=== PATIENT | male | born 1945 | race Caucasian/White ===

== ENCOUNTER 2016-08-01 01:04 | Inpatient (IN) | payer MEDICARE ==
[~2016-08-01 01:04] MED LIST: ALDACTONE25 M1 PO; AMIODARONE HCL200 M1 PO; ASPIRIN EC81 MG PO; BREO ELLIPTA 11 EAC1 INH; COMBIVENT RESPIM4 G1 INH; DEMADEX20 M1 PO; DILT-XR180 M1 PO; HYDROCODON-ACE1 EA16 PO; LIPITOR20 M1 PO; LOPRESSOR100 M1 PO; METOLAZONE2.5 M1 PO; NYAMYC15 GM TP; POTASSIUM CHLO20 ME3 PO; PROAIR HFA8.5 GM INH; PROSCAR5 M1 PO; PROTONIX40 M2 PO; SYNTHROID25 MC1 PO; TAMSULOSIN HCL0.4 M1 PO
[2016-08-01 02:49] LABS: BASO % 0.2 % (0-2); EOS % 0.7 % (0-7); EOSINOPHIL ABSOLUTE COUNT 0.1 tho/cmm (0.0-0.7); HCT-HEMATOCRIT 37.8 % (36.0-53.5); HGB-HEMOGLOBIN 12.1 gm/dl (13.5-17.0); IMMATURE GRANULOCYTES ABSOLUTE 0.22 tho/cmm (0-0.03); IMMATURE GRANULOCYTES PERCENT 1.2 % (0-0.3); LYMPH % 9.9 % (20-45); LYMPH ABSOLUTE COUNT 1.9 tho/cmm (0.8-4.5); MCH (MEAN CORPUSCULAR HGB) 28.9 pg (28.0-32.0); MCV (MEAN CELL VOLUME) 90.2 fl (82.0-96.0); MEAN PLATELET VOLUME 9.9 cmc (9.4-12.4); MONO % 8.8 % (0-12); MONOCYTE ABSOLUTE COUNT 1.7 tho/cmm (0.0-1.2); NEUTROPHILS % 79.2 % (40-80); PLATELET COUNT 219 tho/cmm (150-450); RED BLOOD COUNT 4.19 mil/cmm (4.40-5.70); RED CELL DISTRIBUTION WIDTH 16.6 % (12.4-16.4)
[2016-08-01 03:00] LABS: ANION GAP 16 mmol/L (0-20); BLOOD UREA NITROGEN 58 mg/dl (6-24); CALCIUM 9.3 mg/dl (8.5-10.5); CARBON DIOXIDE-VENOUS 32 mmol/L (22-32); CHLORIDE 91 mmol/l (96-110); CREATININE 3.97 mg/dl (0.60-1.30); GLUCOSE 110 mg/dL (70-110); POTASSIUM 3.7 mmol/L (3.7-5.1); SODIUM 135 mmol/L (135-145); eGFR VALUE FOR BLACK 16 mL/Min
[2016-08-01 03:16] LABS: OSMOLALITY 300 mOsm/kg (275-295)
[2016-08-01 03:50] LABS: PROCALCITONIN 0.42 ng/ml (0.05-0.09)
[2016-08-01 13:56] LABS: URINE SODIUM-RANDOM 44 mmol/L (20-110)
[2016-08-01 14:06] LABS: URINE APPEARANCE CLEAR; URINE BILIRUBIN NEGATIVE (NEG); URINE BLOOD NEGATIVE (NEG); URINE COLOR YELLOW; URINE GLUCOSE (UA) NEGATIVE (NEG); URINE KETONE NEGATIVE (NEG); URINE LEUKOCYTE ESTERASE NEGATIVE (NEG); URINE NITRITE NEGATIVE (NEG); URINE PROTEIN NEGATIVE (NEG); URINE SPECIFIC GRAVITY 1.015 (1.003-1.030)
--- NOTE | 2016-08-01 20:54 | NUR ---
VIRTUAL CARE NOTE: ASSESSEMENT DEFERRED. ATTEMPTED TO ROUND SEVERAL TIMES. PT WITH RN, RT, OR SLEEPING. WILL CONTINUE WITH CHART REVIEW.
[2016-08-02 06:35] LABS: ANION GAP 13 mmol/L (0-20); BLOOD UREA NITROGEN 60 mg/dl (6-24); CALCIUM 9.2 mg/dl (8.5-10.5); CARBON DIOXIDE-VENOUS 33 mmol/L (22-32); CHLORIDE 94 mmol/l (96-110); CREATININE 3.85 mg/dl (0.60-1.30); GLUCOSE 118 mg/dL (70-110); POTASSIUM 3.8 mmol/L (3.7-5.1); SODIUM 136 mmol/L (135-145); eGFR VALUE FOR BLACK 17 mL/Min
--- NOTE | 2016-08-02 14:33 | NUR ---
virtual care note: visited w/ pt at this time. he's sitting up in his chair. states he's better "but not great" as his bilateral feet are still causing him a lot of discomfort. has them elevated while he is sitting. states he just had physical therapy visit, and he was able to stand for a few seconds, which he states is more than he could do previously. staff have been using the lift to transfer. states he also feels a bit "puffy". pt states he told all of this to the rounding physician-will wait for further orders/instructions. will continue to monitor. encouraged pt to call if he has needs-call light is within reach. electronic chart reviewed.
--- NOTE | 2016-08-02 20:11 | NUR ---
VIRTUAL CARE NOTE:PT. UP IN THE CHAIR WITH O2 ON AT 3L PER N/C. R.T. ABOUT READY TO GIVE HIM A TX. STATES IS IN NO PAIN AND ENCOURAGED TO C, AND DB AT TIMES. INSTRUCTED TO CALL FOR FUTURE NEEDS. STATES VERBAL AGREEMENT.
[2016-08-03 05:09] LABS: ABG CO2 ARTERIAL 32 mmol/L (21-27); ARTERIAL BLD GAS O2 SATURATION 92 % (95-98); ARTERIAL BLOOD GAS PCO2 51 mmHg (32-45); ARTERIAL PO2 63 mmHg (70-100); BICARBONATE 30 mmol/L (21-28); BLOOD GAS BASE EXCESS 5 mM/L (-/+3); PH 7.39 Units (7.35-7.45)
[2016-08-03 05:46] LABS: HGB-HEMOGLOBIN 11.3 gm/dl (13.5-17.0); PLATELET COUNT 239 tho/cmm (150-450)
[2016-08-03 06:05] LABS: ANION GAP 15 mmol/L (0-20); BLOOD UREA NITROGEN 60 mg/dl (6-24); CALCIUM 8.8 mg/dl (8.5-10.5); CARBON DIOXIDE-VENOUS 30 mmol/L (22-32); CHLORIDE 97 mmol/l (96-110); CREATININE 3.37 mg/dl (0.60-1.30); GLUCOSE 121 mg/dL (70-110); MAGNESIUM 2.2 mg/dl (1.8-2.6); POTASSIUM 3.7 mmol/L (3.7-5.1); SODIUM 138 mmol/L (135-145); eGFR VALUE FOR BLACK 20 mL/Min
[2016-08-03 15:42] LABS: PROCALCITONIN 0.22 ng/ml (0.05-0.09)
--- NOTE | 2016-08-03 15:49 | NUR ---
VN/LEADER ROUNDING-PATIENT SITTING UP IN CHAIR AND STATES SMALL AMOUNT OF PAIN IN HIS FEET. STAFF ARE GREAT AND HE HAS HAD A GREAT EXPERIENCE HERE IN THE HOSPITAL. I ASKED HIM IS THE DOCTORS HAD SAID ANYTHING ABOUT THE POSSIBILITY OF GOUT YET TO HIM AND WONDERING IF HE KNEW WHAT THAT WAS. HE DID NOT SO DID SOME EDUCATION ON IT AND HIS HEART FAILURE. ASKED NURSE TO GIVE HIM THE [employer] EDUCATION PRINTOUT ON GOUT FOR HIM TO REVIEW. NO OTHER QUESTIONS OR CONCERNS AT THIS TIME.
--- NOTE | 2016-08-03 19:25 | NUR ---
VIRTUAL CARE NOTE: ASESSMENT DEFERRED. PT. SLEEPING.
[2016-08-04 04:40] LABS: BASO % 0.1 % (0-2); HCT-HEMATOCRIT 36.5 % (36.0-53.5); HGB-HEMOGLOBIN 11.7 gm/dl (13.5-17.0); IMMATURE GRANULOCYTES ABSOLUTE 0.24 tho/cmm (0-0.03); IMMATURE GRANULOCYTES PERCENT 1.2 % (0-0.3); LYMPH % 4.5 % (20-45); LYMPH ABSOLUTE COUNT 0.9 tho/cmm (0.8-4.5); MCH (MEAN CORPUSCULAR HGB) 29.1 pg (28.0-32.0); MCHC MEAN CORPUSCULAR HGB CONC 32.1 % (32.0-36.0); MCV (MEAN CELL VOLUME) 90.8 fl (82.0-96.0); MEAN PLATELET VOLUME 9.8 cmc (9.4-12.4); MONO % 8.1 % (0-12); MONOCYTE ABSOLUTE COUNT 1.6 tho/cmm (0.0-1.2); NEUTROPHIL ABSOLUTE COUNT 16.8 tho/cmm (1.6-8.0); NEUTROPHIL-AUTOMATED 16.8 tho/cmm (1.6-8.0); NEUTROPHILS % 86.1 % (40-80); PLATELET COUNT 255 tho/cmm (150-450); RED BLOOD COUNT 4.02 mil/cmm (4.40-5.70); RED CELL DISTRIBUTION WIDTH 16.3 % (12.4-16.4); WHITE BLOOD COUNT 19.6 tho/cmm (4.0-10.0)
[2016-08-04 05:10] LABS: ALB/GLOB RATIO 0.4 (0.8-2.0); ALBUMIN 2.1 g/dl (3.5-5.0); ALKALINE PHOSPHATASE 46 U/L (33-138); ALT/SGPT 26 U/L (12-78); ANION GAP 13 mmol/L (0-20); AST/SGOT 19 U/L (10-40); BILIRUBIN,TOTAL 0.3 mg/dl (0.0-1.5); BLOOD UREA NITROGEN 61 mg/dl (6-24); CALCIUM 8.7 mg/dl (8.5-10.5); CARBON DIOXIDE-VENOUS 29 mmol/L (22-32); CHLORIDE 100 mmol/l (96-110); GLUCOSE 130 mg/dL (70-110); MAGNESIUM 2.5 mg/dl (1.8-2.6); PHOSPHOROUS 3.2 mg/dl (2.5-4.9); POTASSIUM 3.6 mmol/L (3.7-5.1); SODIUM 138 mmol/L (135-145); eGFR VALUE FOR BLACK 24 mL/Min
--- NOTE | 2016-08-04 14:58 | NUR ---
VIRTUAL CARE NOTE: PT AWAKE, SITTING UP IN CHAIR, FEET ELEVATED. PT STATES LEGS/ANKLE TENDER, ABLE TO TOLERATE. PT HAS BEEN UP TO WALK TODAY, STATES HE CAN ONLY WALK SHORT DISTANCES. PT ON O2, HAS O2 AT HOME, STATES HE WEARS 3L W/ CPAP AT NIGHT BUT CURRENTLY HAS ONLY USED O2 D/T BROKEN CPAP MASK. PT DENIES QUESTIONS/CONCERNS AT THIS TIME. VN WILL CONTINUE TO MONITOR ELECTRONIC RECORD AND FOLLOW W/ PT
[2016-08-05 05:20] LABS: ABG CO2 ARTERIAL 32 mmol/L (21-27); ARTERIAL BLD GAS O2 SATURATION 96 % (95-98); ARTERIAL BLOOD GAS PCO2 56 mmHg (32-45); ARTERIAL PO2 87 mmHg (70-100); BICARBONATE 30 mmol/L (21-28); BLOOD GAS BASE EXCESS 4 mM/L (-/+3); PH 7.35 Units (7.35-7.45)
[2016-08-05 05:34] LABS: BASO % 0.1 % (0-2); EOS % 0.5 % (0-7); EOSINOPHIL ABSOLUTE COUNT 0.1 tho/cmm (0.0-0.7); HCT-HEMATOCRIT 37.1 % (36.0-53.5); HGB-HEMOGLOBIN 11.6 gm/dl (13.5-17.0); IMMATURE GRANULOCYTES ABSOLUTE 0.15 tho/cmm (0-0.03); LYMPH % 10.4 % (20-45); LYMPH ABSOLUTE COUNT 1.6 tho/cmm (0.8-4.5); MCH (MEAN CORPUSCULAR HGB) 28.9 pg (28.0-32.0); MCHC MEAN CORPUSCULAR HGB CONC 31.3 % (32.0-36.0); MCV (MEAN CELL VOLUME) 92.5 fl (82.0-96.0); MEAN PLATELET VOLUME 9.8 cmc (9.4-12.4); MONO % 11.1 % (0-12); MONOCYTE ABSOLUTE COUNT 1.7 tho/cmm (0.0-1.2); NEUTROPHIL ABSOLUTE COUNT 11.7 tho/cmm (1.6-8.0); NEUTROPHIL-AUTOMATED 11.7 tho/cmm (1.6-8.0); NEUTROPHILS % 76.9 % (40-80); PLATELET COUNT 226 tho/cmm (150-450); RED BLOOD COUNT 4.01 mil/cmm (4.40-5.70); RED CELL DISTRIBUTION WIDTH 16.9 % (12.4-16.4); WHITE BLOOD COUNT 15.2 tho/cmm (4.0-10.0)
[2016-08-05 07:27] LABS: ANION GAP 12 mmol/L (0-20); BLOOD UREA NITROGEN 63 mg/dl (6-24); CALCIUM 9.1 mg/dl (8.5-10.5); CARBON DIOXIDE-VENOUS 32 mmol/L (22-32); CHLORIDE 102 mmol/l (96-110); CREATININE 2.83 mg/dl (0.60-1.30); GLUCOSE 79 mg/dL (70-110); MAGNESIUM 2.4 mg/dl (1.8-2.6); PHOSPHOROUS 3.3 mg/dl (2.5-4.9); SODIUM 142 mmol/L (135-145); eGFR VALUE FOR BLACK 25 mL/Min
--- NOTE | 2016-08-05 21:49 | NUR ---
VIRTUAL CARE NOTE: ASSESSMENT DEFERRED. PT SLEEPING X2. WILL CONTINUE WITH CHART REVIEW.
[2016-08-06 05:14] LABS: BASO % 0.1 % (0-2); EOS % 0.7 % (0-7); EOSINOPHIL ABSOLUTE COUNT 0.1 tho/cmm (0.0-0.7); HCT-HEMATOCRIT 38.2 % (36.0-53.5); HGB-HEMOGLOBIN 12.1 gm/dl (13.5-17.0); IMMATURE GRANULOCYTES ABSOLUTE 0.21 tho/cmm (0-0.03); IMMATURE GRANULOCYTES PERCENT 1.2 % (0-0.3); LYMPH % 5.9 % (20-45); LYMPH ABSOLUTE COUNT 1.1 tho/cmm (0.8-4.5); MCH (MEAN CORPUSCULAR HGB) 28.7 pg (28.0-32.0); MCHC MEAN CORPUSCULAR HGB CONC 31.7 % (32.0-36.0); MCV (MEAN CELL VOLUME) 90.7 fl (82.0-96.0); MEAN PLATELET VOLUME 9.9 cmc (9.4-12.4); MONO % 8.4 % (0-12); MONOCYTE ABSOLUTE COUNT 1.5 tho/cmm (0.0-1.2); NEUTROPHIL ABSOLUTE COUNT 15.1 tho/cmm (1.6-8.0); NEUTROPHIL-AUTOMATED 15.1 tho/cmm (1.6-8.0); NEUTROPHILS % 83.7 % (40-80); PLATELET COUNT 236 tho/cmm (150-450); RED BLOOD COUNT 4.21 mil/cmm (4.40-5.70); RED CELL DISTRIBUTION WIDTH 16.5 % (12.4-16.4)
[2016-08-06 05:15] LABS: BLOOD UREA NITROGEN 60 mg/dl (6-24); CALCIUM 8.7 mg/dl (8.5-10.5); CARBON DIOXIDE-VENOUS 30 mmol/L (22-32); CHLORIDE 98 mmol/l (96-110); CREATININE 2.74 mg/dl (0.60-1.30); SODIUM 138 mmol/L (135-145); eGFR VALUE FOR BLACK 26 mL/Min
[2016-08-06 05:17] LABS: ANION GAP 14 mmol/L (0-20); GLUCOSE 131 mg/dL (70-110); POTASSIUM 3.5 mmol/L (3.7-5.1)
[2016-08-06 14:31] LABS: BASO % 0.1 % (0-2); EOS % 0.3 % (0-7); EOSINOPHIL ABSOLUTE COUNT 0.1 tho/cmm (0.0-0.7); HCT-HEMATOCRIT 38.4 % (36.0-53.5); HGB-HEMOGLOBIN 12.2 gm/dl (13.5-17.0); IMMATURE GRANULOCYTES ABSOLUTE 0.16 tho/cmm (0-0.03); IMMATURE GRANULOCYTES PERCENT 0.9 % (0-0.3); LYMPH % 3.6 % (20-45); LYMPH ABSOLUTE COUNT 0.7 tho/cmm (0.8-4.5); MCH (MEAN CORPUSCULAR HGB) 28.8 pg (28.0-32.0); MCHC MEAN CORPUSCULAR HGB CONC 31.8 % (32.0-36.0); MCV (MEAN CELL VOLUME) 90.8 fl (82.0-96.0); MEAN PLATELET VOLUME 9.5 cmc (9.4-12.4); MONO % 7.1 % (0-12); MONOCYTE ABSOLUTE COUNT 1.3 tho/cmm (0.0-1.2); NEUTROPHIL ABSOLUTE COUNT 16.6 tho/cmm (1.6-8.0); NEUTROPHIL-AUTOMATED 16.6 tho/cmm (1.6-8.0); PLATELET COUNT 231 tho/cmm (150-450); RED BLOOD COUNT 4.23 mil/cmm (4.40-5.70); RED CELL DISTRIBUTION WIDTH 16.4 % (12.4-16.4); WHITE BLOOD COUNT 18.8 tho/cmm (4.0-10.0)
[2016-08-06 16:01] LABS: ANION GAP 13 mmol/L (0-20); BLOOD UREA NITROGEN 63 mg/dl (6-24); CALCIUM 9.1 mg/dl (8.5-10.5); CARBON DIOXIDE-VENOUS 31 mmol/L (22-32); CHLORIDE 96 mmol/l (96-110); CREATININE 2.88 mg/dl (0.60-1.30); GLUCOSE 152 mg/dL (70-110); POTASSIUM 3.7 mmol/L (3.7-5.1); SODIUM 136 mmol/L (135-145); eGFR VALUE FOR BLACK 24 mL/Min
[2016-08-07 09:27] LABS: BASO % 0.1 % (0-2); EOS % 0.5 % (0-7); EOSINOPHIL ABSOLUTE COUNT 0.1 tho/cmm (0.0-0.7); HGB-HEMOGLOBIN 12.9 gm/dl (13.5-17.0); IMMATURE GRANULOCYTES ABSOLUTE 0.31 tho/cmm (0-0.03); IMMATURE GRANULOCYTES PERCENT 1.2 % (0-0.3); LYMPH ABSOLUTE COUNT 1.6 tho/cmm (0.8-4.5); MCH (MEAN CORPUSCULAR HGB) 29.1 pg (28.0-32.0); MCHC MEAN CORPUSCULAR HGB CONC 32.3 % (32.0-36.0); MCV (MEAN CELL VOLUME) 90.3 fl (82.0-96.0); MEAN PLATELET VOLUME 10.1 cmc (9.4-12.4); MONO % 6.2 % (0-12); MONOCYTE ABSOLUTE COUNT 1.6 tho/cmm (0.0-1.2); NEUTROPHIL ABSOLUTE COUNT 22.2 tho/cmm (1.6-8.0); NEUTROPHIL-AUTOMATED 22.2 tho/cmm (1.6-8.0); PLATELET COUNT 246 tho/cmm (150-450); RED BLOOD COUNT 4.43 mil/cmm (4.40-5.70); RED CELL DISTRIBUTION WIDTH 16.4 % (12.4-16.4); WHITE BLOOD COUNT 25.8 tho/cmm (4.0-10.0)
[2016-08-07 09:34] LABS: ANION GAP 13 mmol/L (0-20); BLOOD UREA NITROGEN 65 mg/dl (6-24); CALCIUM 9.3 mg/dl (8.5-10.5); CARBON DIOXIDE-VENOUS 30 mmol/L (22-32); CHLORIDE 95 mmol/l (96-110); CREATININE 2.81 mg/dl (0.60-1.30); GLUCOSE 111 mg/dL (70-110); POTASSIUM 3.6 mmol/L (3.7-5.1); SODIUM 134 mmol/L (135-145); eGFR VALUE FOR BLACK 25 mL/Min
[2016-08-07 15:02] LABS: ALB/GLOB RATIO 0.4 (0.8-2.0); ALBUMIN 2.3 g/dl (3.5-5.0); ALKALINE PHOSPHATASE 61 U/L (33-138); ALT/SGPT 29 U/L (12-78); ANION GAP 16 mmol/L (0-20); AST/SGOT 14 U/L (10-40); BILIRUBIN,TOTAL 0.4 mg/dl (0.0-1.5); BLOOD UREA NITROGEN 67 mg/dl (6-24); CALCIUM 9.2 mg/dl (8.5-10.5); CARBON DIOXIDE-VENOUS 29 mmol/L (22-32); CHLORIDE 96 mmol/l (96-110); CREATININE 3.07 mg/dl (0.60-1.30); GLUCOSE 164 mg/dL (70-110); LIPASE 243 U/L (73-393); POTASSIUM 3.7 mmol/L (3.7-5.1); SODIUM 137 mmol/L (135-145); eGFR VALUE FOR BLACK 22 mL/Min
--- NOTE | 2016-08-07 17:11 | NUR ---
VIRTUAL CARE NOTE: PT RESTING ON CHAIR, STATES SORE ON ABDOMEN, CHART REVIWED, ABD U/S DONE-NO ACUTE CHANGES. THE CIGARETTE STAMPER WAS IN THE ROOM CHECK PT'S BLOOD SUGAR AND BUSY WITH CARES. PT DOING OK OTHERWISE.
--- NOTE | 2016-08-07 20:59 | NUR ---
VIRTUAL CARE NOTE: ASSESSMENT DEFERRED. PT. SLEEPING.
[2016-08-08 07:41] LABS: ANION GAP 16 mmol/L (0-20); BASO % 0.1 % (0-2); BLOOD UREA NITROGEN 71 mg/dl (6-24); CARBON DIOXIDE-VENOUS 27 mmol/L (22-32); CHLORIDE 95 mmol/l (96-110); CREATININE 2.88 mg/dl (0.60-1.30); EOS % 0.3 % (0-7); EOSINOPHIL ABSOLUTE COUNT 0.1 tho/cmm (0.0-0.7); GLUCOSE 88 mg/dL (70-110); HCT-HEMATOCRIT 38.4 % (36.0-53.5); HGB-HEMOGLOBIN 12.3 gm/dl (13.5-17.0); IMMATURE GRANULOCYTES ABSOLUTE 0.41 tho/cmm (0-0.03); IMMATURE GRANULOCYTES PERCENT 1.5 % (0-0.3); LYMPH % 5.3 % (20-45); LYMPH ABSOLUTE COUNT 1.4 tho/cmm (0.8-4.5); MCH (MEAN CORPUSCULAR HGB) 28.5 pg (28.0-32.0); MCV (MEAN CELL VOLUME) 89.1 fl (82.0-96.0); MONO % 7.8 % (0-12); MONOCYTE ABSOLUTE COUNT 2.1 tho/cmm (0.0-1.2); NEUTROPHIL ABSOLUTE COUNT 23.1 tho/cmm (1.6-8.0); NEUTROPHIL-AUTOMATED 23.1 tho/cmm (1.6-8.0); RED BLOOD COUNT 4.31 mil/cmm (4.40-5.70); RED CELL DISTRIBUTION WIDTH 16.4 % (12.4-16.4); SODIUM 134 mmol/L (135-145); WHITE BLOOD COUNT 27.2 tho/cmm (4.0-10.0); eGFR VALUE FOR BLACK 24 mL/Min
[2016-08-08 07:44] LABS: POTASSIUM 4.1 mmol/L (3.7-5.1)
[2016-08-09 05:15] LABS: BASO % 0.1 % (0-2); EOS % 0.3 % (0-7); EOSINOPHIL ABSOLUTE COUNT 0.1 tho/cmm (0.0-0.7); HCT-HEMATOCRIT 37.7 % (36.0-53.5); HGB-HEMOGLOBIN 12.3 gm/dl (13.5-17.0); IMMATURE GRANULOCYTES PERCENT 2.3 % (0-0.3); LYMPH % 5.1 % (20-45); LYMPH ABSOLUTE COUNT 1.3 tho/cmm (0.8-4.5); MCH (MEAN CORPUSCULAR HGB) 28.7 pg (28.0-32.0); MCHC MEAN CORPUSCULAR HGB CONC 32.6 % (32.0-36.0); MCV (MEAN CELL VOLUME) 87.9 fl (82.0-96.0); MEAN PLATELET VOLUME 10.3 cmc (9.4-12.4); MONO % 8.5 % (0-12); MONOCYTE ABSOLUTE COUNT 2.2 tho/cmm (0.0-1.2); NEUTROPHIL ABSOLUTE COUNT 21.6 tho/cmm (1.6-8.0); NEUTROPHIL-AUTOMATED 21.6 tho/cmm (1.6-8.0); NEUTROPHILS % 83.7 % (40-80); RED BLOOD COUNT 4.29 mil/cmm (4.40-5.70); RED CELL DISTRIBUTION WIDTH 16.4 % (12.4-16.4); WHITE BLOOD COUNT 25.8 tho/cmm (4.0-10.0)
[2016-08-09 05:21] LABS: PLATELET COUNT 282 tho/cmm (150-450)
[2016-08-09 05:30] LABS: ALB/GLOB RATIO 0.5 (0.8-2.0); ALBUMIN 2.2 g/dl (3.5-5.0); ALKALINE PHOSPHATASE 66 U/L (33-138); ALT/SGPT 28 U/L (12-78); ANION GAP 18 mmol/L (0-20); AST/SGOT 21 U/L (10-40); BILIRUBIN,TOTAL 0.5 mg/dl (0.0-1.5); BLOOD UREA NITROGEN 86 mg/dl (6-24); CALCIUM 8.7 mg/dl (8.5-10.5); CARBON DIOXIDE-VENOUS 27 mmol/L (22-32); CHLORIDE 92 mmol/l (96-110); CREATININE 3.24 mg/dl (0.60-1.30); GLUCOSE 108 mg/dL (70-110); MAGNESIUM 2.4 mg/dl (1.8-2.6); PHOSPHOROUS 4.9 mg/dl (2.5-4.9); POTASSIUM 3.8 mmol/L (3.7-5.1); SODIUM 133 mmol/L (135-145); eGFR VALUE FOR BLACK 21 mL/Min
--- NOTE | 2016-08-09 15:26 | NUR ---
VIRTUAL CARE NOTE: PT UP IN CHAIR. UP AND WALKED TO BATHROOM W/ STAFF ASSIST X2 TODAY, NOW ABLE TO TOLERATE BEARING WEIGHT ON HIS FEET. HAD PREVIOUSLY BEEN EXPERIENCING ALOT OF PAIN. SPECIAL ORTHOPEDIC BOOT APPLIED TO FOOT, WHICH SEEMS TO HAVE HELPED THE PAIN. WILL CONTINUE TO MONITOR. ELECTRONIC CHART REVIEWED.
--- NOTE | 2016-08-09 21:41 | NUR ---
VN ROUNDING DEFERRED PATIENT SLEEPING IN CHAIR.
[2016-08-10 11:08] LABS: ANION GAP 18 mmol/L (0-20); BLOOD UREA NITROGEN 90 mg/dl (6-24); CALCIUM 8.4 mg/dl (8.5-10.5); CARBON DIOXIDE-VENOUS 28 mmol/L (22-32); CHLORIDE 95 mmol/l (96-110); CREATININE 3.28 mg/dl (0.60-1.30); GLUCOSE 126 mg/dL (70-110); SODIUM 137 mmol/L (135-145); eGFR VALUE FOR BLACK 21 mL/Min
[2016-08-10 11:09] LABS: POTASSIUM 3.7 mmol/L (3.7-5.1)
--- NOTE | 2016-08-10 16:57 | NUR ---
VIRTUAL CARE NOTE: CHECKED IN ON PT. HE IS DOING VERY WELL! FEELS MUCH BETTER, STATES HIS PAIN IS WELL CONTROLLED. IS RESTING IN BED. WEARS SPECIAL ORTHO BOOT TO LT FOOT WHEN UP. STATES HE'S BEEN WALKING TO THE BATHROOM. CALLS APPROPRIATELY. CALL LIGHT IS WITHIN REACH. HAS NO FURTHER NEEDS OR QUESTIONS. WILL CONTINUE TO MONITOR. ELECTRONIC CHART REVIEWED.
--- NOTE | 2016-08-10 20:51 | NUR ---
VN ROUNDING NOTE-PATIENT SITTING UP IN CHAIR STATES PAIN IS CONTROLLED AND HE IS DOING FINE. HE HAS NO QUESTIONS OR CONCERNS AND WE JUST DID A LITTLE SMALL TALK ABOUT THE WEATHER. CHART REVIEWED.
[2016-08-11 05:09] LABS: HGB-HEMOGLOBIN 11.7 gm/dl (13.5-17.0); PLATELET COUNT 249 tho/cmm (150-450)
[2016-08-11 05:26] LABS: ANION GAP 14 mmol/L (0-20); BLOOD UREA NITROGEN 81 mg/dl (6-24); CALCIUM 8.9 mg/dl (8.5-10.5); CARBON DIOXIDE-VENOUS 28 mmol/L (22-32); CHLORIDE 97 mmol/l (96-110); CREATININE 2.74 mg/dl (0.60-1.30); GLUCOSE 83 mg/dL (70-110); PHOSPHOROUS 3.5 mg/dl (2.5-4.9); SODIUM 136 mmol/L (135-145); eGFR VALUE FOR BLACK 26 mL/Min
[2016-08-11 05:33] LABS: POTASSIUM 3.2 mmol/L (3.7-5.1)
--- NOTE | 2016-08-11 19:15 | NUR ---
VIRTUAL CARE NOTE: ASSESSMENT DEFERRED, PT. SLEEPING.
[2016-08-12] MEDS ORDERED: NEURONTIN100 M1 PO (19:02)
[2016-09-05] MEDS ORDERED: HYDRALAZINE HCL50 M1 PO (14:25)
[2016-09-10] MEDS ORDERED: AUGMENTIN 500-1 EAC2 PO (10:33)
[2016-09-10] MEDS ORDERED: LOPRESSOR50 M1 PO (10:35)
[2016-09-28] MEDS ORDERED: TYLENOL325 M2 PO (10:04)
[2016-09-28] MEDS ORDERED: IMODIUM A-D2 M4 PO (10:06)
[2016-09-28] MEDS ORDERED: METAMUCIL SUGA283 GM PO (10:11)
[2016-09-28] MEDS ORDERED: POTASSIUM CHLO20 ME3 PO (10:13)
== END 2016-08-12 17:13 | DRG 555 ==
LOC: 5WD 01:04
PROVIDERS: Hospitalist; Internal Medicine; Internal Medicine Critical Care Medicine; Internal Medicine Nephrology; Registered Nurse; ADMIT Internal Medicine
DX: M79.672 Pain in left foot (principal); J96.21 Acute and chronic respiratory failure with hypoxia; N17.9 Acute kidney failure, unspecified; N18.4 Chronic kidney disease, stage 4 (severe); J44.1 Chronic obstructive pulmonary disease with (acute) exacerbation; Z68.43 Body mass index [BMI] 50.0-59.9, adult; M79.671 Pain in right foot; I12.9 Hypertensive chronic kidney disease with stage 1 through stage 4 chronic kidney disease, or unspecified chronic kidney disease; G47.33 Obstructive sleep apnea (adult) (pediatric); N40.0 Benign prostatic hyperplasia without lower urinary tract symptoms; D72.829 Elevated white blood cell count, unspecified; Z86.711 Personal history of pulmonary embolism; I25.10 Atherosclerotic heart disease of native coronary artery without angina pectoris; G56.00 Carpal tunnel syndrome, unspecified upper limb; E66.01 Morbid (severe) obesity due to excess calories; Z86.73 Personal history of transient ischemic attack (TIA), and cerebral infarction without residual deficits
CPT/HCPCS: A9540; A9558; C8929; J1650; J2270; J2543; J2920; J7030; J7040; J7512